=== PATIENT | female | born 1950 | race Caucasian/White ===

== ENCOUNTER 2022-03-24 15:48 | Emergency (ER) | payer BC, MEDICARE ==
[~2022-03-24] VITALS: Ht 170.2 cm; Wt 68.0 kg
[2022-03-24 16:10] VITALS: BP 160/88
[2022-03-24] MEDS ORDERED: AMOX-117 PO ×2 (16:36→17:31)
[2022-03-24] MEDS ORDERED: XYL25J TOP ×2 (16:36→17:31)
[2022-03-24] MEDS ORDERED: LIDOcaine 2% 10ml TOPICAL JELLY (Urojet) MM ONE (17:05)
[2022-03-24] MEDS ORDERED: amox tr/potassium clavulanate 875/125mg TAB PO ONE (17:05)
[2022-03-24] MEDS ORDERED: LIDOcaine Viscous 15ml cup MM ONE (17:25)
== END 2022-03-24 17:45 | disposition home or self-care (01) ==
LOC: ER 15:49
DX: J02.9 Acute pharyngitis, unspecified (principal); R59.0 Localized enlarged lymph nodes; J44.9 Chronic obstructive pulmonary disease, unspecified; Z88.8 Allergy status to other drugs, medicaments and biological substances; Z79.899 Other long term (current) drug therapy
CPT/HCPCS: 87081; 87880; 99283